=== PATIENT | male | born 1990 | race Caucasian/White ===

== ENCOUNTER 2017-03-06 05:45 | Day surgery (SDC) | payer BC ==
[~2017-03-06] VITALS: Ht 172.7 cm; Wt 98.9 kg
[~2017-03-06 05:45] MED LIST: TESTOSTERON200 MG/ML IM
[2017-03-06 08:27] VITALS: BP 108/78; Ht 172.7 cm; Wt 98.9 kg
[2017-03-06 08:31] LABS: HEMATOCRIT 45.4 % (42.0-54.0); HEMOGLOBIN 15.2 g/dL (13.5-17.5); MCH 30.6 pg (26.0-34.0); MCHC 33.5 g/dL (31.0-37.0); MCV 91.5 fL (80.0-100.0); MEAN PLATELET VOLUME 10.6 fL (7.4-10.4); RBC 4.96 10x6/uL (4.20-6.10); WBC 8.7 10x3/uL (4.8-10.8)
[2017-03-06 08:42] LABS: HCG SERUM NEGATIVE
[2017-03-06] MEDS ORDERED: HYDROCODONE-APA1 TAB PO (15:33)
--- NOTE | 2017-03-06 17:00 | NUR ---
LEFT HAND PIV DC'D WITH TIP INTACT. PATIENT DRESSED IN PERSONAL CLOTHING. DISCHARGE INSTRUCTIONS REVIEWED WITH PATIENT. DISCHARGED HOME VIA WHEELCHAIR TO PRIVATE VEHICLE WITH PARENTS
--- NOTE | 2017-03-08 06:33 | OP ---
PATIENT NAME: MILLIE ANDINO MEDICAL RECORD: [id number] :89 LOCATION:D.OPS ADMISSION DATE: SURGEON: CELESTE BURT MD DATE OF OPERATION: 03/06/2017 DATE OF OPERATION: 03/06/2017. PREOPERATIVE DIAGNOSIS: Transient painful compartment syndrome of the anterior and lateral compartments of the right lower extremity. POSTOPERATIVE DIAGNOSIS: Transient painful compartment syndrome of the anterior and lateral compartments of the right lower extremity. PROCEDURE: Elective compartment fasciotomy times 3. SURGEON: Celeste Burt MD. ANESTHESIA: General. INTRAOPERATIVE COMPLICATIONS: None. SUMMARY OF PATHOLOGIC FINDINGS: The resting state the compartments were not tight; however, the patient did have dense fascial planes between the posterolateral and anterior compartments. OPERATIVE SUMMARY IN DETAIL: After obtaining the appropriate preoperative orthopedic surgery consent as well as anesthetic consultation, evaluation and clearance, the patient was brought to the operating room and placed on the operating table in supine position. After general laryngeal mask airway was administered, tourniquet was placed about the proximal aspect of the right lower extremity. Note, it was not used during this case. Right lower extremity was prepped and draped in routine sterile fashion. An incision was made just at the lateral and posterior crura for approximately 4 cm long and another incision made likewise distally. The fascia was definitively identified. A small incision was made and then under direct visualization, the fascia was split of the posterior split distally and then from the posterior incision, the lateral compartment fascia was split proximally. Through the same incision, the anterior compartment fascia was also identified and under direct visualization, it likewise was split to release the pressure in the anterior compartment. Lastly, the posterolateral compartment was released in a similar manner. Having completed this, the wounds were copiously irrigated and closed with 2-0 Vicryl followed by 3-0 Prolene in running fashion. Sterile dressings were applied. The patient was awakened, taken to recovery in stable condition. All final needle and sponge counts were correct. TRANSINT:[id number] Voice Confirmation ID: [id number] DOCUMENT ID: [id number] OPERATIVE REPORT [id number] MILLIE ANDINO CELESTE BURT MD at 0633 CC: [id number] DICTATION DATE: 03/06/17 1516 FIELD SERVICE ANALYST: 03/06/17 [id number] [facility] 03/06/17 [facility] [address] [place] [address]
== END 2017-03-06 17:10 | disposition home or self-care (01) ==
LOC: D.OPS 05:45 → D.PAN 10:30 → D.OPS 10:30 → D.PAN 12:30 → EDSEX 12:30 → D.OPS 12:30
PROVIDERS: Anesthesiology
DX: M79.A21 Nontraumatic compartment syndrome of right lower extremity (principal)